=== PATIENT | female | born 1985 | race Caucasian/White ===

== ENCOUNTER → 2023-07-25 13:17 | Outpatient (CLI) | payer OTHER, SELFPAY ==
--- NOTE | ~2023-07-25 | US_ITS ---
Pelvic ultrasound. Clinical History: First trimester , establish days and viability Technique: Realtime transabdominal and transvaginal scanning of the pelvis was performed. Color flow Doppler and Doppler spectral analysis were performed. Findings: The uterus is anteverted, and contains an intrauterine gestation. [place]-rump length of 2.5 cm corresponds to an estimated gestational age of 9 weeks 1 day. heart rate is 167 bpm. Yolk sa c present. Neither ovary seen. No adnexal mass seen. There is no evidence of free fluid in the cul de sac. Impression: Live intrauterine gestation with estimated gestational age of 9 weeks 1 day. heart rate is 167 bpm. Sonographic HERNAN is 02/26/2024. Reviewed, dictated and finalized at location . [employer] Impression: Live intrauterine gestation with estimated gestational age of 9 weeks 1 day. Fe jimmy heart rate is 167 bpm. Sonographic HERNAN is 02/26/2024.
== END ==
PROVIDERS: PCP Advanced Practice Midwife; Visit Provider Advanced Practice Midwife
DX: O36.80X0 Pregnancy with inconclusive fetal viability, not applicable or unspecified (principal); Z3A.09 9 weeks gestation of pregnancy
CPT/HCPCS: 76801

== ENCOUNTER 2023-11-08 09:55 | Outpatient (CLI) | payer OTHER, SELFPAY ==
--- NOTE | ~2023-11-08 | US_ITS ---
EXAMINATION: US OB follow up DATE: 11/08/2023 10:16 INDICATION: Estimated size greater than expected for estimated gestational age TECHNIQUE: Real-time ultrasound of the pelvis was performed. The interpreting radiologist was not pre sent for the study. COMPARISON: None. FINDINGS: There is a single living fetus in vertex presentation. The placenta is posterior. heart rate i s 163 beats per minute (bpm). The amniotic fluid index is 13.6 cm, which is normal. (5th%-95%: 9.8-2 1.9 cm at 24 weeks estimated gestational age). The following biometric data were obtained: BPD: 6.3 cm -> 25 weeks 3 days Head circumference: 24.0 cm -> 26 weeks 1 days Abdominal circumference: 20.2 cm -> 24 weeks 6 days Femur length: 4. cm -> 625 weeks 3 days These measurements are concordant. Head circumference to abdominal circumference ratio: 1.19 (normal range 1.04-1.22). Estimated weight: 780 g (+/-) 117 g or 1 lbs. 12 oz. (+/-) 4 oz. IMPRESSION: 1. Single living fetus in vertex presentation with heart rate of 163 bpm. 2. Normal amniotic fluid index of 14.6 cm. 3. Estimated weight is 81st percentile by Hadlock criteria when 02/26/2024 is used as the estima cheyanne date of delivery (HERNAN). Please correlate with clinical information or earlier ultrasounds for mos t accurate HERNAN. Reviewed, dictated and finalized at location A. IMPRESSION: 1. Single living fetus in vertex presentation with heart rate of 163 bpm. 2. Normal amniotic fluid index of 14.6 cm. 3. Estimated weight is 81st percentile by Hadlock criteria when 02/26/2024 is used as the estimated date of delivery (HERNAN). Please correlate with clinica l information or earlier ultrasounds for most accurate HERNAN.
== END 2023-11-08 09:56 ==
PROVIDERS: PCP Obstetrics & Gynecology Gynecology; Visit Provider Obstetrics & Gynecology Gynecology
DX: O36.63X0 Maternal care for excessive fetal growth, third trimester, not applicable or unspecified (principal); Z3A.00 Weeks of gestation of pregnancy not specified
CPT/HCPCS: 76816

== ENCOUNTER 2023-12-08 12:47 | Outpatient (RCR) | payer OTHER, SELFPAY ==
[2023-12-07 15:06] LABS: Hematocrit 32.9 % (37.0-47.0); Hemoglobin 11.4 g/dL (12.0-15.0)
[2023-12-07 15:16] LABS: Glucose 1 Hour PP 50gm Dose 165 mg/dL
[2023-12-07 15:44] LABS: Vitamin D 25 Hydroxy 62.3 ng/mL
[2023-12-07 16:07] LABS: HIV 1/2 Ab P24 Ag Result Negative (Negative)
[2023-12-08] MEDS: RHO(D) IMMUNE GLOBULIN 300 MCG/2 ML SYRINGE IM (15:11)
== END 2023-12-08 12:50 | disposition home or self-care (01) ==
LOC: ANHLAB 12:47
PROVIDERS: PCP Obstetrics & Gynecology Gynecology; Visit Provider Obstetrics & Gynecology Gynecology
DX: Z11.4 Encounter for screening for human immunodeficiency virus [HIV] (principal); Z11.3 Encounter for screening for infections with a predominantly sexual mode of transmission; Z29.13 Encounter for prophylactic Rho(D) immune globulin; O36.0190 Maternal care for anti-D [Rh] antibodies, unspecified trimester, not applicable or unspecified; Z3A.00 Weeks of gestation of pregnancy not specified; E55.9 Vitamin D deficiency, unspecified
CPT/HCPCS: 36415; 82306; 82947; 85014; 85018; 85461; 86703; 86850; 86900; 86901; 90384; 96372; G0432; J2790

== ENCOUNTER 2023-12-13 07:17 | Outpatient (CLI) | payer OTHER, SELFPAY ==
[2023-12-13 08:02] LABS: Glucose Fasting 93 mg/dL
[2023-12-13 10:04] LABS: Glucose 1 Hour 190 mg/dL
[2023-12-13 10:40] LABS: Glucose 2 Hour 173 mg/dL
[2023-12-13 12:00] LABS: Glucose 3 Hour 111 mg/dL
== END 2023-12-13 07:18 | disposition home or self-care (01) ==
LOC: ANHLAB 07:20
PROVIDERS: PCP Obstetrics & Gynecology Gynecology; Visit Provider Obstetrics & Gynecology Gynecology
DX: O99.810 Abnormal glucose complicating pregnancy (principal); Z3A.00 Weeks of gestation of pregnancy not specified
CPT/HCPCS: 36415; 82951; 82952

== ENCOUNTER 2024-02-15 14:26 | Inpatient (IN) | payer OTHER, SELFPAY ==
[2024-02-15] VITALS (139 sets, daily range): BP systolic 101–181; BP diastolic 48–156; PULSE 65–289; TEMP 36.4–38.1; O2SAT 88–100; BMI 29.7
[2024-02-15] MEDS: LACTATED RINGERS 1,000 ML 125 ML IV CONT (15:25)
[2024-02-15 15:28] LABS: Basophils Absolute Auto 0.1 K/mm3 (0.0-0.1); Basophils Percent Auto 0.3 % (0.2-1.2); Eosinophils Absolute Auto 0.1 K/mm3 (0-0.3); Eosinophils Percent Auto 0.4 % (0-4.4); Hematocrit 34.1 % (37.0-47.0); Hemoglobin 12.2 g/dL (12.0-15.0); Immature Granulocyte Absolute 0.06 K/mm3 (0.00-0.031); Immature Granulocyte Percent A 0.4 % (0-0.5); Lymphocytes Percent Auto 14.6 % (18.3-44.2); Mean Corpuscular HGB Conc 35.8 g/dl (32-36); Mean Corpuscular Hemoglobin 34.6 pg (26-34); Mean Corpuscular Volume 96.6 fl (80-100); Mean Platelet Volume 11.3 fl (7.4-10.4); Monocytes Absolute Auto 0.8 K/mm3 (0.1-0.6); Monocytes Percent Auto 5.6 % (2.6-8.5); Neutrophils Absolute Auto 11.3 K/mm3 (1.3-6.7); Neutrophils Percent Auto 78.7 % (45.5-73.1); Platelet Count Result 166 k/mm3 (150-375); Red Blood Count 3.53 M/mm3 (4.2-5.4); Red Cell Distribution Width 12.8 % (11.5-14.5); White Blood Count 14.3 K/mm3 (4.5-10.0)
--- NOTE | 2024-02-15 15:53 | LDADM ---
This patient, Luana Bean, was admitted to Labor/Delivery/Recovery 104 on 02/15/24 at 14:26. Plans for labor, pain management and were discussed with patient. Patient/family oriented to hospital policies and general routines including ID bracelet, bed and alarms, visiting hours, pain management, procedures, bathroom and other care routines, personal items, smoking policy, room service/diet and guest tray routines, security routines, and visiting hours. Patient/Family are encouraged to report perceived risks to care and to ask questions if they do not understand what they are told or what they should do. See OBIX for further documentation.
[2024-02-15] MEDS: LACTATED RINGERS 1,000 ML 999 ML IV CONT ×2 (16:03→22:15)
[2024-02-15] MEDS: ONDANSETRON INJ 4 MG/2 ML VIAL IV PUSH (16:09)
[2024-02-15] MEDS: fentaNYL CITRATE INJ (*CRX) 100 MCG/2 ML VIAL IV PUSH (16:11)
[2024-02-15 16:18] LABS: HIV 1/2 Ab P24 Ag Result Negative (Negative)
--- NOTE | 2024-02-15 16:27 | WPDANESEPP ---
Anes - Eval Pre Procedure Procedure: labor epidural Date/Time: 02/15/24 16:27 Surgeon: Dalila Preop Diagnosis: Pain during labor Pre Op Diagnosis: Leaking Patient Data Age: 38 Gender: F Height: 1.63 m Weight: 78.6 kg Last Vital Signs Pulse 75 02/15/24 16:25 BP 122/78 02/15/24 16:25 Pulse Ox 96 02/15/24 16:23 Allergies Allergy/AdvReac Type Severity Reaction Status Date / Time No Known Allergies Allergy Verified 01/29/24 12:36 Home Medications Medication Instructions Recorded Confirmed Type aspirin 81 mg capsule 81 mg PO DAILY 01/29/24 01/29/24 History doxylamine succinate 25 mg tablet 25 mg PO HS PRN Insomnia 01/29/24 01/29/24 History (Unisom (doxylamine)) ergocalciferol (vitamin D2) 1,250 1,250 mcg PO WEEKLY 01/29/24 01/29/24 History mcg (50,000 unit) capsule (Vitamin D2) insulin NPH isoph U-100 human 100 12 unit subcut HS 01/29/24 01/29/24 History unit/mL (3 mL) subcutaneous pen (Humulin N NPH U-100 Insulin KwikPen) vits no.126-ferrous fum 1 tablet PO DAILY 01/29/24 01/29/24 History 28 mg iron-folic acid 800 mcg tablet (Classic ) Laboratory Tests 02/15/24 15:20 WBC 14.3 H K/mm3 (4.5-10.0) RBC 3.53 L M/mm3 (4.2-5.4) Hgb 12.2 g/dL (12.0-15.0) Hct 34.1 L % (37.0-47.0) MCV 96.6 fl (80-100) MCH 34.6 H pg (26-34) MCHC 35.8 g/dl (32-36) RDW 12.8 % (11.5-14.5) Plt Count 166 k/mm3 (150-375) MPV 11.3 H fl (7.4-10.4) Immature Gran % (Auto) 0.4 % (0-0.5) Neut % (Auto) 78.7 H % (45.5-73.1) Lymph % (Auto) 14.6 L % (18.3-44.2) [place] % (Auto) 5.6 % (2.6-8.5) Eos % (Auto) 0.4 % (0-4.4) Baso % (Auto) 0.3 % (0.2-1.2) Lymph # (Auto) 2.10 K/mm3 (0.9-3.2) [place] # (Auto) 0.8 H K/mm3 (0.1-0.6) Eos # (Auto) 0.1 K/mm3 (0-0.3) Baso # (Auto) 0.1 K/mm3 (0.0-0.1) Abs Immat Gran (auto) 0.06 H K/mm3 (0.00-0.031) Absolute Neuts (auto) 11.3 H K/mm3 (1.3-6.7) Absolute Nucleated RBC 0.000 K/mm3 (0.0-0.012) Nucleated RBC % 0.0 % (0.0-0.2) RPR Pending HIV 1&2 Ab/P24 Ag 4thGn Negative (Negative) Blood Type A Negative Antibody Screen Positive Antibody Identification Pending Antigen Identification Pending CAMMY, IgG Interpret Pending CAMMY, Poly Interpret Pending CAMMY, Complement Interp Pending Patient hx anesthesia problems: none Family hx anesthesia problems: none Results Review: All pre-operative results and documents have been reviewed as part of the pre-operative evaluation. [facility] Family History Family History Father Malignant neoplasm of prostate Social History Social History Smoking status: Never smoker Second hand tobacco smoke exposure: No Substance use: never Do You Feel Safe in your Home?: Yes Lack of Transportation: No Lack of Food: Never True Current Housing: I Have Housing Concerned About Future Housing: No Difficulty Paying Gas/Electric Bills: No Difficulty Paying for Meds: No Currently Unemployed: No Education: Bachelor's Degree Difficulty w/ Childcare or Family Care: No Spiritual care concerns: No Exam Day of Procedure 02/15/24 16:27 Patient weight: normal Heart: regular rate and rhythm Lungs: clear to auscultation Airway: Mallampati scale class II Neurological: alert and oriented
[2024-02-15 16:32] LABS: OBXCEM Leaking
[2024-02-15 16:39] LABS: Glucose Point of Care 87 mg/dl (65-105)
[2024-02-15 19:36] LABS: Glucose Point of Care 76 mg/dl (65-105)
[2024-02-15 20:36] LABS: Rapid Plasma Reagin Non-Reactive (NonReactive)
[2024-02-15] MEDS: ACETAMINOPHEN 500 MG TABLET 1000 MG PO (22:14)
[2024-02-15] MEDS: AMPICILLIN 2 GM/NS 100 ML 2 GM/100 ML BAG IVPB (22:14)
--- NOTE | 2024-02-15 23:33 | WPDOBADMIT ---
Obstetrics - Admit Note Admission Note: record reviewed. Additions to the history and/or subsequent changes in the physical findings follow. 38 y/o G1 at 38 2/7 weeks here with SROM. Has A2DM, takes NPH 16 units at bedtime. otherwise uncomplicated. Labor has progressed without stimulation. Cervix is completely dilated and she is pushing. Have been monitoring accuchecks, mostly have been in 70s-80s. Had a temp 100.6, treated with ampicillin and Tylenol, and now afebrile. Epidural functioning well. AVSS NST reactive TOCO: contractions every 3-4 min ABD soft, nontender, gravid EXT nontender Cervix C/+2 Continue pushing. Augment second stage of labor as needed with oxytocin.
[2024-02-16] VITALS (19 sets, daily range): BP systolic 101–129; BP diastolic 40–88; PULSE 67–121; RESP 16; TEMP 36.1–36.8; O2SAT 98–99
--- NOTE | 2024-02-16 01:17 | PM.OBPRVD ---
OB - Vaginal Delivery Note Procedure Delivery date: 02/17/24 Events: Gestational Diabetes Induction method: None Delivery augmentation: Pitocin Delivery monitor: External FHT and External Uterine Route of delivery: Episiotomy description: None Laceration Description: Perineal - 2nd Degree Delivery repair: vicryl (3-0) Specimen: Yes (placenta, cord blood) Quantitative Blood Loss (ml): 220 Anesthesia type: Epidural Disposition: PACU Complications: None Narrative: 38 y/o G1 at 38 3/7 weeks gestation who presented to the hospital after a gush of clear fluid. SROM was confirmed. Labor continued without stimulation. Accuchecks were monitored. She received an epidural for pain control. Her labor progressed and her cervix dilated completely. Oxytocin augmentation was administered during the second stage of labor. She pushed with good effort and delivered the 's head to the perineum, followed by the body and a gush of meconium-stained fluid. The nose and mouth were bulb suctioned. After a delay, the cord was clamped and cut. The infant was handed off the field. Cord blood was collected. The placenta delivered spontaneously and was grossly normal in appearance. The usual 3 vessel cord was noted. A second degree midline perineal laceration was sustained. This was reapproximated using 3 0 Vicryl in the usual layered fashion. Excellent hemostasis resulted as did excellent reapproximation of the normal anatomy. Needle and instrument counts were correct. The patient was taken to recovery room in stable condition. The went to the nursery in stable condition. I was present and scrubbed for the entire delivery. [place] Baby Date of : 02/16/24 Time of : 12:51 Weeks of gestation at delivery: 38 gender: Female Weight (pounds): 6 Weight (ounces): 13 presentation: vertex position: Left Occiput Anterior Placenta delivery description: Spontaneous Cord Vessel Description: 3 Vessels and Delayed Cord Clamping score one minute: 7 score five minutes: 9
--- NOTE | 2024-02-16 01:22 | PM.OBDSVD ---
DS: Admitting Diagnosis Discharge Date 02/18/24 Admitting Diagnosis IUP at 38 3/7 weeks SROM A2DM DS: Discharge Diagnosis Discharge Diagnosis (1) (normal spontaneous vaginal delivery): Code(s): O80 - Encounter for full-term uncomplicated delivery Status: Acute (2) Gestational diabetes mellitus: Code(s): O24.419 - Gestational diabetes mellitus in , unspecified control Status: Acute OB - DS: Summary OB Procedures : None OB Procedures Intrapartum: Spontaneous Vag Delivery OB Procedures: : RHo (D) lg Peripartum Data Laceration Description: Perineal - 2nd Degree Episiotomy description: None Time Spent with Patient Time attestation: Total time spent providing and/or coordinating discharge services: DS: Data Data Completed and Pending Labs on day of discharge: Labs from last 24 hours 02/15/24 02/15/24 02/15/24 19:34 16:25 15:20 WBC 14.3 H RBC 3.53 L Hgb 12.2 Hct 34.1 L MCV 96.6 MCH 34.6 H MCHC 35.8 RDW 12.8 Plt Count 166 MPV 11.3 H Immature Gran % (Auto) 0.4 Neut % (Auto) 78.7 H Lymph % (Auto) 14.6 L [place] % (Auto) 5.6 Eos % (Auto) 0.4 Baso % (Auto) 0.3 Lymph # (Auto) 2.10 [place] # (Auto) 0.8 H Eos # (Auto) 0.1 Baso # (Auto) 0.1 Abs Immat Gran (auto) 0.06 H Absolute Neuts (auto) 11.3 H Absolute Nucleated RBC 0.000 Nucleated RBC % 0.0 POC Capillary Glucose 76 87 Membranes Rupture Membranes Rup Com RPR Non-reactive HIV 1&2 Ab/P24 Ag 4thGn Negative Blood Type A Negative Antibody Screen Positive Antibody Identification Passive Due to RH Imm Glob Antigen Identification Cancelled CAMMY, IgG Interpret Negative CAMMY, Poly Interpret Not Performed CAMMY, Complement Interp Negative 02/15/24 14:42 WBC RBC Hgb Hct MCV MCH MCHC RDW Plt Count MPV Immature Gran % (Auto) Neut % (Auto) Lymph % (Auto) [place] % (Auto) Eos % (Auto) Baso % (Auto) Lymph # (Auto) [place] # (Auto) Eos # (Auto) Baso # (Auto) Abs Immat Gran (auto) Absolute Neuts (auto) Absolute Nucleated RBC Nucleated RBC % POC Capillary Glucose Membranes Rupture Leaking Membranes Rup Com Yes RPR HIV 1&2 Ab/P24 Ag 4thGn Blood Type Antibody Screen Antibody Identification Antigen Identification CAMMY, IgG Interpret CAMMY, Poly Interpret CAMMY, Complement Interp Discharge Plan Discharge Attending physician on discharge: Alysha Conner Discharging Clinician: Maurilio Garcia Patient Disposition: Home, Self-Care Activity: pelvic rest Diet: regular Discharge Instructions: Call or return if temperature above 100.4? F, increased abdominal pain, increased vaginal bleeding or any new problems. Stand Alone Forms: General Discharge Information Follow-up/Referrals: Alysha Conner MD [Physician] - 6 Weeks Discharge Medications: New ibuprofen 600 mg tablet 600 mg PO Q6H PRN (Reason: cramps) Qty: 30 0RF Continued ergocalciferol (vitamin D2) [Vitamin D2] 1,250 mcg (50,000 unit) Capsule 1,250 mcg PO WEEKLY Classic 28 mg iron- 800 mcg Tablet 1 tablet PO DAILY Discontinued Unisom (doxylamine) 25 mg Tablet 25 mg PO HS PRN (Reason: Insomnia) Humulin N NPH Insulin KwikPen 100 unit/mL (3 mL) Insulin Pen 12 unit SUBCUT HS aspirin 81 mg Capsule 81 mg PO DAILY Date of admission: 02/15/24 14:26 Primary Care Provider: Ezequiel,Alyson Figueroa Admitting Provider: Alysha Conner Attending physician on admission: Alysha Conner Condition: Stable
[2024-02-16 01:23] LABS: Glucose Point of Care 120 mg/dl (65-105)
[2024-02-16 01:23] LABS: Glucose Point of Care 124 mg/dl (65-105)
[2024-02-16] MEDS: WITCH HAZEL 40 PADS 1 PAD TOPICAL (03:16)
[2024-02-16] MEDS: BENZOCAINE 20% AER SPR (*SP) 56 GM CAN 1 SPRAY TOPICAL (03:16)
[2024-02-16] MEDS: IBUPROFEN 600 MG TABLET PO ×3 (03:17→19:23)
--- NOTE | 2024-02-16 03:37 | OBPPTRN ---
Patient transferred to post room #283 via wheelchair @ 3099. Support person present. Oriented to unit, room, information board, rooming in, admission packet and security measures. Patient verbalizes understanding.
--- NOTE | 2024-02-16 06:45 | PC.NURSE ---
Consulted with patient to assess needs related to . We reviewed working with the infant, supporting breast, protecting her nipples with an optimal deep latch, and good positioning. Reviewed positioning and alignment, supporting breast, off-centered (asymmetrical latch) and leading with the chin with big, open, wide gape. latched optimally to the [left and right] breast in [football and cross cradle] positions. The was [not able] to maintain latch for longer than a few sucks. Discussed how latch should not pinch or hurt. Mother voiced understanding of the education shared, to call for assistance if the does not latch or if there is discomfort with . Reported to the Primary RN.
[2024-02-16] MEDS: MULTIVIT/MIN/PREN/FOL AC/IRON TABLET 1 TAB PO (08:12)
[2024-02-16] MEDS: DOCUSATE SODIUM 100 MG CAPSULE PO (13:29)
--- NOTE | 2024-02-16 14:15 | PC.NURSE ---
1340: Primary RN requests assistance for . It has been a long time since the last feeding. glucose check is WNL. Infant undressed and skin to skin with mom. Attempted latch to right breast in football hold. Infant will latch and hold the nipple in her mouth but does not suck. Primary RN tried a nipple shield to stimulate infants suck reflex without success. Worked with mom and baby for about ten minutes and infant was not giving any effort to nurse. Discussed options with mother, including pumping or giving baby a little more time to see if she wakes up. Mother is open to pumping to see if we can get some volume to feed to baby. Mother has an Opera pump at home, advised that she may bring it to get comfortable with using it before discharge. Hospital pump and kit provided at this time so we can initiate pumping and breast stimulation. Mom measured and fitted with the appropriate size flanges (24mm). Instructions given on cleaning, care, usage, that there should be no pain, pumping schedule for milk production, collection, and storage of human milk. Patient was assessed for correct placement, flange size, to pump for comfort and nipple stretching/stimulation for adequate milk production every 3 hours (8 times in 24 hours) 1-2 times at night.?Mother voiced understanding of the education shared. Will reevaluate the plan for after mom pumps. 1415: Mother got a few drops in the pump flange. Educated mother that this is very normal and doesn't necessarily reflect her ability to produce milk. Mother has breast and bottle documented as her feeding preference so we discussed what her desire is at this time. Mom is open to supplementing, with the hope that baby will 'perk up' after the supplement and feed better at the breast at the next feeding. Infant also being monitored for hypoglycemia so counseled parents about supplementing to prevent low glucose. Similac provided and parents educated on bottle feeding, burping, and disposing of unused formula after each feeding. Mother bottle feeding and we reviewed putting infant to breast first at the next feeding time. Mother will call for assistance as needed. Reported to Primary RN.
[2024-02-16] MEDS: ACETAMINOPHEN 325 MG TABLET 650 MG PO (16:33)
[2024-02-17] MEDS: DOCUSATE SODIUM 100 MG CAPSULE PO ×2 (02:20→16:16)
[2024-02-17 05:25] LABS: Hematocrit 30.3 % (37.0-47.0); Hemoglobin 10.7 g/dL (12.0-15.0)
[2024-02-17 08:15] VITALS: BP 111/77; PULSE 97; RESP 18; TEMP 36.1; O2SAT 96
[2024-02-17] MEDS: MULTIVIT/MIN/PREN/FOL AC/IRON TABLET 1 TAB PO (08:32)
[2024-02-17] MEDS: IBUPROFEN 600 MG TABLET PO ×2 (08:32→16:16)
[2024-02-17] MEDS: WITCH HAZEL 40 PADS 1 PAD TOPICAL (08:33)
--- NOTE | 2024-02-17 09:54 | WPDANLDPN2 ---
Anes-Prog Note L&D Date/Time: 02/17/24 09:54 Comfortable throughout: labor and delivery Neuraxial method: epidural Epidural/Spinal procedure site: clean & non-tender Neuro status: Neuro function grossly intact. Cardiovascular status: normal Respiratory status: normal Airway patency: baseline Mental status: baseline Post-Op hydration status: normal Vital Signs: Last Vital Signs Temp 36.1 C L 02/17/24 08:15 Pulse 97 02/17/24 08:15 Resp 18 02/17/24 08:15 BP 111/77 02/17/24 08:15 Pulse Ox 96 02/17/24 08:15 O2 Del Method Room Air 02/16/24 09:45 Pain score (VAS): 2/10 I/O: Intake & Output 02/16/24 02/17/24 02/17/24 23:59 07:59 15:59 Intake Total 240 Balance 240 Post-procedural complaints: none Patient feedback: Patient satisfied with anesthetic care.
--- NOTE | 2024-02-17 09:58 | PM.OBPNVD ---
OB - PN: Subj Subjective Date/time seen: 02/17/24 09:58 Narrative: Pain OK. OB - PN: Obj Data Labs 02/17/24 04:59 Labs: Laboratory Results - last 24 hr 02/17/24 04:59 Hgb 10.7 L Hct 30.3 L Blood Type A Negative Antibody Screen TNP Screen Negative Baby's Blood Type A pos Baby's CAMMY Positive Doses of RhIg Required 1 OB - PN A/P Plan Comments: A: PPD#1, doing well. P: Routine care. Exam Psych: Other: AVSS ABD soft, nontender, fundus firm EXT nontender
[2024-02-17] MEDS: RHO(D) IMMUNE GLOBULIN 300 MCG/2 ML SYRINGE IM (13:36)
[2024-02-17 19:59] VITALS: BP 112/77; PULSE 67; RESP 16; TEMP 36.3; O2SAT 100
[2024-02-18 07:50] VITALS: BP 125/86; PULSE 66; RESP 16; TEMP 36.4; O2SAT 100
--- NOTE | 2024-02-18 09:02 | PM.OBPNVD ---
OB - PN: Subj Subjective Date/time seen: 02/18/24 09:02 Narrative: Pain OK. Would like to go home. OB - PN: Obj Data Labs 02/17/24 04:59 Labs: Laboratory Results - last 24 hr 02/17/24 04:59 Blood Type A Negative Antibody Screen TNP Screen Negative Baby's Blood Type A pos Baby's CAMMY Positive Doses of RhIg Required 1 OB - PN A/P Plan Comments: A: PPD#2, doing well. P: Home to f/u 6 weeks. Exam Psych: Other: AVSS ABD soft, nontender, fundus firm EXT nontender
[2024-02-18] MEDS: DOCUSATE SODIUM 100 MG CAPSULE PO (09:03)
[2024-02-18] MEDS: MULTIVIT/MIN/PREN/FOL AC/IRON TABLET 1 TAB PO (09:03)
--- NOTE | 2024-02-18 10:05 | P.PNOB_ITS ---
OB - PN: Subj Subjective Date/time seen: 02/18/24 10:05 Patient comments: no complaints and pain well controlled baby status: doing well OB - PN: Obj Data Labs 02/17/24 04:59 Labs: Laboratory Results - last 24 hr 02/17/24 04:59 Blood Type A Negative Antibody Screen TNP Screen Negative Baby's Blood Type A pos Baby's CAMMY Positive Doses of RhIg Required 1 OB - PN A/P Plan day: 2 Plan: routine care, discharge home, follow up 6 weeks and other (micronor for bc) Time Spent With Patient Time: Total time spent is greater than 50% in coordination of care (as documented) at patient's floor/unit and/or counseling patient: Exam 2 : Bimanual exam- vagina & uterus: other (Uterus firm, nt @U)
--- NOTE | 2024-02-18 10:31 | PC.NURSE ---
Patient viewed the discharge video Mother & Baby Care, The First Two Weeks . Patient was given the opportunity and encouraged to ask questions. Patient verbalized understanding of information shared and has been given the mother/baby guide for home reference.
[2024-02-19 10:22] VITALS: BP 139/82; PULSE 72; RESP 18; TEMP 36.7; O2SAT 100
== END 2024-02-18 11:17 | disposition home or self-care (01) | DRG 806 ==
LOC: ANHLDR 02-16 01:23 → ANHOB2 02-18 10:31 → ANHLDR 02-19 08:59 → ANHOB2 02-19 08:59
PROVIDERS: Obstetrics & Gynecology Gynecology; Admitting Provider Obstetrics & Gynecology; PCP Nurse Practitioner Family; Visit Provider Obstetrics & Gynecology
DX: O24.429 Gestational diabetes mellitus in childbirth, unspecified control (principal); O75.2 Pyrexia during labor, not elsewhere classified; Z37.0 Single live birth; Z3A.38 38 weeks gestation of pregnancy; O70.1 Second degree perineal laceration during delivery; O77.0 Labor and delivery complicated by meconium in amniotic fluid
CPT/HCPCS: 36415; 82948; 84112; 85014; 85018; 85025; 85461; 86592; 86703; 86850; 86880; 86900; 86901; 86902; 88307; 90384; A9270; G0432; J0290; J2405; J2790; J2795; J3010; J7120

== ENCOUNTER 2024-06-10 07:09 | Outpatient (CLI) | payer OTHER, SELFPAY ==
[2024-06-10 08:07] LABS: Glucose Fasting 97 mg/dL
[2024-06-10 09:21] LABS: Glucose 1 Hour 94 mg/dL
[2024-06-10 10:12] LABS: Glucose 2 Hour 89 mg/dL
== END 2024-06-10 07:10 | disposition home or self-care (01) ==
LOC: ANHLAB 07:12
PROVIDERS: PCP Nurse Practitioner Family; Visit Provider Advanced Practice Midwife
DX: Z86.32 Personal history of gestational diabetes (principal)
CPT/HCPCS: 36415; 82951

== ENCOUNTER 2024-10-24 13:24 | Outpatient (CLI) | payer OTHER, SELFPAY ==
--- NOTE | ~2024-10-24 | MM_ITS ---
EXAMINATION: MM screening imelda BI w francis HISTORY: Screening TECHNIQUE: Craniocaudal and mediolateral oblique 3-D tomosynthesis images were obtained and synthetic 2-D images were generated. CAD analysis was submitted and interpreted. COMPARISON: No prior mammogram is available for comparison at this institution. BREAST PARENCHYMAL COMPOSITION: Dense: The breasts are extremely dense, which lowers the sensitivity of mammography. FINDINGS: There is no evidence of suspicious mass, calcification, or architectural distortion to sugg est malignancy in either breast. There has been no suspicious interval change. IMPRESSION: 1. No mammographic evidence of malignancy. 2. Recommend routine screening mammography in one year. BI-RADS Category 1: Negative Reviewed, dictated and finalized at location B.
== END 2024-10-24 13:25 | disposition home or self-care (01) ==
LOC: MICIMG 13:25
PROVIDERS: PCP Nurse Practitioner Family; Visit Provider Obstetrics & Gynecology Gynecology
DX: Z12.31 Encounter for screening mammogram for malignant neoplasm of breast (principal)
CPT/HCPCS: 77063; 77067

== ENCOUNTER 2025-06-26 08:27 | Outpatient (CLI) | payer OTHER, SELFPAY ==
--- NOTE | ~2025-06-26 | US_ITS ---
EXAMINATION: US thyroid DATE: 06/26/2025 08:46 INDICATION: Nodules TECHNIQUE: Multiple ultrasound images of the thyroid were obtained. COMPARISON: None. FINDINGS: The right thyroid lobe measures 4.6 x 1.9 x 1.5 cm. The left thyroid lobe measures 5.0 x 1.5 x 1.5 cm. In the right lobe, complex nodules measuring 1.5, and 0.8 cm along the medial margin with TR 3 sonographic features. In the left lobe, a complex nodule measuring 1.2 cm also with TR 3 features. Echotexture of the thyroid is otherwise mildly heterogeneous. On color flow, there appears be mildly hyperemic changes. IMPRESSION: 1. Normal size thyroid with hyperemic changes which could be associated with thyroiditis. 2. Bilateral TR 3 nodules also noted with the largest measuring 1.5 cm in the left lobe with sonographically indeterminate features. RECOMMENDATION: Correlate with FNA of the larger nodule or follow-up surveillance thyroid ultrasound in 12 months with recommended date of next exam on or about June 26, 2026 with repeat exam sooner as clinically appropriate. Reviewed, dictated and finalized at location A. [employer] IMPRESSION: 1. Normal size thyroid with hyperemic changes which could be associated with th yroiditis. 2. Bilateral TR 3 nodules also noted with the largest measuring 1.5 cm in the l eft lobe with sonographically indeterminate features. RECOMMENDATION: Correlate with FNA of the larger nodule or follow-up surveillan ce thyroid ultrasound in 12 months with recommended date of next exam on or abo ut June 26, 2026 with repeat exam sooner as clinically appropriate.
== END 2025-06-26 08:28 | disposition home or self-care (01) ==
PROVIDERS: PCP Nurse Practitioner; Visit Provider Nurse Practitioner
DX: E07.9 Disorder of thyroid, unspecified (principal)
CPT/HCPCS: 76536